=== PATIENT | male | born 1935 | race Caucasian/White ===

== ENCOUNTER 2018-08-13 09:39 | Day surgery (SDC) | payer MEDICARE, OTHER ==
[~2018-08-13 09:39] MED LIST: Midazolam 1 MG/ML 2 ML SDV ONE; Propofol 200 MG/20 ML SDV ONE
[2018-08-13] MEDS ORDERED: Lactated Ringers 1,000 ML IV SCH (09:45)
[2018-08-13] MEDS ORDERED: Sodium Chloride 0.9% 10 ML Syringe FLUSH PRN (09:45)
--- NOTE | 2018-08-13 11:57 | PCM.PN ---
- General Info Date of Service: 08/13/18 - Review of Systems Systems Review Comment:: 83-year-old male referred for colonoscopy. He states it is been well over 10 years since his last colonoscopy. He does state that he hay of polyps. The patient had a recent episode of apparent diverticulitis. This has resolved and he is here for colonoscopy.He is medically stable to proceed today. I have reviewed his history and physical and no significant changes are noted. I discussed the proposed colonoscopy with the patient. He agrees to proceed accepting risks. - Patient Data Vitals - Most Recent: Last Vital Signs Temp 98.1 F 08/13/18 10:41 Pulse 85 08/13/18 10:41 Resp 18 08/13/18 10:41 BP 159/80 H 08/13/18 10:41 Pulse Ox 99 08/13/18 10:41 Weight - Most Recent: 64.41 kg Med Orders - Current: Current Medications Lactated Ringer's (Ringers, Lactated) 1,000 mls @ 125 mls/hr IV ASDIRECTED NICOLA Last Admin: 08/13/18 10:38 Dose: 125 mls/hr Sodium Chloride (Saline Flush) 10 ml FLUSH ASDIRECTED PRN PRN Reason: Keep Vein Open Discontinued Medications Midazolam HCl (Versed 1 Mg/Ml) Confirm Administered Dose 2 mg .ROUTE .STK-MED ONE Stop: 08/13/18 08:17 Propofol (Diprivan 20 Ml) Confirm Administered Dose 200 mg .ROUTE .STK-MED ONE Stop: 08/13/18 08:17 - Problem List Review Problem List Initiated/Reviewed/Updated: Yes - My Orders Last 24 Hours: My Active Orders 08/13/18 09:45 Patient Status [ADT] Routine Peripheral IV Care [RC] . DIRECTED Verify Patient Consent Obtain [RC] ASDIRECTED Lactated Ringers [Ringers, Lactated] 1,000 ml IV ASDIRECTED Sodium Chloride 0.9% [Saline Flush] 10 ml FLUSH ASDIRECTED PRN Peripheral IV Insertion Adult [OM.PC] Routine - Assessment Assessment:: colon cancer screening history of colon polyps - Plan Plan:: colonoscopy
[2018-08-13] MEDS ORDERED: Midazolam 1 MG/ML 2 ML SDV ONE (12:03)
[2018-08-13] MEDS ORDERED: Propofol 200 MG/20 ML SDV ONE (12:03)
--- NOTE | 2018-08-13 12:43 | PCM.OPNOTE ---
- General Post-Op/Procedure Note Date of Surgery/Procedure: 08/13/18 Operative Procedure(s): Colonoscopy Findings: Extensive Diverticulosis of left colon Pre Op Diagnosis: Colon Cancer Screening Post-Op Diagnosis: Left Colon Diverticulosis Anesthesia Technique: MAC Primary Surgeon: Santiago Gibson Pathology: none Output, Urine Amount: 0 EBL in mLs: 0 Complications: None Condition: Good
--- NOTE | 2018-08-13 13:46 | OR ---
Date of Procedure: 08/13/2018 REFERRING PROVIDER: Maria Luisa Aaron PA-C PREOPERATIVE DIAGNOSIS: Colon cancer screening. POSTOPERATIVE DIAGNOSIS: Extensive left colon diverticulosis. OPERATIONS PERFORMED: Colonoscopy. INDICATIONS FOR SURGERY: This 83-year-old male is referred today for colonoscopy. It has been many years since his last colonoscopy. He states he did have some polyps. He also notes a recent episode of diverticulitis requiring hospitalization and antibiotic therapy. FINDINGS: The patient has extensive left colon diverticulosis. Multiple large diverticula with tortuosity of the colon are noted. No acute inflammation seen in the colon today. No polyps or other lesions were noted. DESCRIPTION OF PROCEDURE: The patient was taken to the operating room. He was given intravenous sedation and with him in the left lateral decubitus position, digital rectal exam was performed showing no rectal masses. The Olympus colonoscope was inserted into the rectum. Retroflexed examination of the rectal canal was performed. The scope was then carefully advanced under direct visualization through the entire length of the colon until the cecum was reached. Traversing the sigmoid colon was difficult because of the tortuosity and extensive diverticulosis, but eventually this was able to be safely accomplished. Cecal identity is noted by viewing the ileocecal valve and appendiceal orifice. The light was also noted to transilluminate the abdominal wall in the right lower quadrant. After examining the cecum, the scope was slowly withdrawn, sequentially re-examining the colonic segments until the entire colon and rectum had been fully examined. The scope was removed and the patient was taken from the operating room in satisfactory condition. ESTIMATED BLOOD LOSS: 0. COMPLICATIONS: None. PROGNOSIS: Good. ILAN Gibson MD /[id number]
--- NOTE | 2018-08-17 08:24 | PCM.SN ---
- Free Text/Narrative Note: Pt recieved 200mg of propofal for the procedure Jemima Bejarano [employer]
== END 2018-08-13 13:49 | disposition home or self-care (01) ==
LOC: LL.SDS 09:39
PROVIDERS: ATTEND Surgery
DX: Z12.11 Encounter for screening for malignant neoplasm of colon (principal); K57.30 Diverticulosis of large intestine without perforation or abscess without bleeding; E03.9 Hypothyroidism, unspecified; D45 Polycythemia vera; C91.10 Chronic lymphocytic leukemia of B-cell type not having achieved remission; Z80.0 Family history of malignant neoplasm of digestive organs; Z79.51 Long term (current) use of inhaled steroids; Z79.899 Other long term (current) drug therapy; Z87.891 Personal history of nicotine dependence
CPT/HCPCS: G0105; J2250; J2704; J7120